=== PATIENT | female | born 1955 | race Caucasian/White ===

== ENCOUNTER 2024-09-12 09:00 | Outpatient (RCR) | payer MEDICARE, BC, SELFPAY ==
--- NOTE | 2024-09-06 11:33 | ONC.NURNOTE ---
Dx: Hilar cholagiocarcinoma
[2024-09-12] VITALS (8 sets, daily range): BP systolic 111–137; BP diastolic 68–88; PULSE 91–102; RESP 16–18; TEMP 36.3–37.1; O2SAT 95–98
== END 2025-01-02 23:59 | disposition home or self-care (01) ==
LOC: CCIC 09:00
PROVIDERS: PCP Family Medicine; Visit Provider Clinical Nurse Specialist
DX: C22.1 Intrahepatic bile duct carcinoma (principal); C79.51 Secondary malignant neoplasm of bone
CPT/HCPCS: 36415; 36430; 36591; 86850; 86900; 86901; 86922; P9016